=== PATIENT | male | born 1990 | race Caucasian/White ===

== ENCOUNTER 2018-03-27 11:17 | Emergency (ER) | payer SELFPAY ==
[2018-03-27 11:25] VITALS: BP 139/93
--- NOTE | 2018-03-27 11:51 | ER Document Report ---
ED Medical Screen (RME) - General Chief Complaint: Alcohol Withdrawl Stated Complaint: POSSIBLE ETOH Time Seen by Provider: 03/27/18 11:45 Notes: 28-year-old male patient comes emergency room for abscess on his left proximal forearm. Is been going on for about a week. There appear to be some satellite lesions. He states he has had these before, but they always cleared with antibiotics and did not require incision and drainage. He also states that he has not done IV drugs in a long time. He states he drinks a case of beer a day, last alcohol was 11:00 PM last night and he states he is in alcohol withdrawal. He also states he wants to stop drinking. I have greeted and performed a rapid initial assessment of this patient. A comprehensive ED assessment and evaluation of the patient, analysis of test results and completion of the medical decision making process will be conducted by additional ED providers. TRAVEL OUTSIDE OF THE [place] IN LAST 30 DAYS: No - Related Data Allergies/Adverse Reactions: No Known Allergies Allergy (Verified 03/27/18 11:20) Physical Exam - Vital signs Vitals: Temp Pulse Resp BP Pulse Ox 97.4 F 101 H 20 139/93 H 100 03/27/18 11:23 03/27/18 11:23 03/27/18 11:23 03/27/18 11:23 03/27/18 11:23 Course - Vital Signs Vital signs: Temp Pulse Resp BP Pulse Ox 97.4 F 101 H 20 139/93 H 100 03/27/18 11:23 03/27/18 11:23 03/27/18 11:23 03/27/18 11:23 03/27/18 11:23
[2018-03-27 12:28] LABS: ABSOLUTE BASOPHILS # (AUTO) 0.1 10^3/uL (0.0-0.2); ABSOLUTE EOSINOPHILS # (AUTO) 0.5 10^3/uL (0.0-0.6); ABSOLUTE LYMPHOCYTES (AUTO) 2.1 10^3/uL (0.5-4.7); ABSOLUTE MONOCYTES (AUTO) 1.1 10^3/uL (0.1-1.4); ABSOLUTE NEUT (AUTO) 11.4 10^3/uL (1.7-8.2); BASOPHILS % (AUTO) 0.7 % (0-2); EOSINOPHILS % (AUTO) 3.2 % (0-6); HEMATOCRIT 45.7 % (37.9-51.0); HEMOGLOBIN 15.7 g/dL (13.5-17.0); LYMPHOCYTES % (AUTO) 14.1 % (13-45); MEAN CORPUSCULAR HEMOGLOBIN 30.5 pg (27.0-33.4); MEAN CORPUSCULAR HGB CONC 34.3 g/dL (32.0-36.0); MEAN CORPUSCULAR VOLUME 89 fl (80-97); MONOCYTES % (AUTO) 7.4 % (3-13); PLATELET COUNT 267 10^3/uL (150-450); RED BLOOD COUNT 5.14 10^6/uL (4.35-5.55); RED CELL DISTRIBUTION WIDTH 13.5 % (11.5-14.0); SEGMENTED NEUTROPHILS % (AUTO) 74.6 % (42-78); TOTAL CELLS COUNTED % (AUTO) 100 %; WHITE BLOOD COUNT 15.2 10^3/uL (4.0-10.5)
[2018-03-27 12:45] LABS: ALANINE AMINOTRANSFERASE 53 U/L (21-72); ALBUMIN 4.8 g/dL (3.5-5.0); ALKALINE PHOSPHATASE 81 U/L (38-126); BLOOD UREA NITROGEN 11 mg/dL (7-20); CARBON DIOXIDE 27 mmol/L (22-30); GLUCOSE 92 mg/dL (75-110)
[2018-03-27 12:47] LABS: ANION GAP 10 (5-19); ASPARTATE AMINO TRANSFERASE 31 U/L (17-59); CALCIUM 9.5 mg/dL (8.4-10.2); CHLORIDE 102 mmol/L (98-107); SODIUM 139.2 mmol/L (137-145)
[2018-03-27 12:49] LABS: BILIRUBIN,TOTAL 0.3 mg/dL (0.2-1.3)
[2018-03-27 13:05] LABS: ALCOHOL < 10 mg/dL (NONE DETECTED)
[2018-03-27 13:06] LABS: BILIRUBIN,DIRECT 0.3 mg/dL (0.0-0.4)
[2018-03-27] MEDS ORDERED: LIDOCAINE 1%/EPINEPHRINE INJ 20 ML VIAL INJ ONE (13:36)
[2018-03-27] MEDS ORDERED: SULFAMETHOXAZOLE/TRIMETHOPRIM 800-160 MG TABLET PO ONE (13:37)
--- NOTE | 2018-03-27 14:04 | ER Document Report ---
ED General - General Chief Complaint: Alcohol Withdrawl Stated Complaint: POSSIBLE ETOH Time Seen by Provider: 03/27/18 11:45 TRAVEL OUTSIDE OF THE [place] IN LAST 30 DAYS: No - HPI Patient complains to provider of: Alcohol withdrawals abscess left arm Notes: Patient coming in for evaluation of the above state complaints. Patient was seen in triage notes provided below 28-year-old male patient comes emergency room for abscess on his left proximal forearm. Is been going on for about a week. There appear to be some satellite lesions. He states he has had these before, but they always cleared with antibiotics and did not require incision and drainage. He also states that he has not done IV drugs in a long time. He states he drinks a case of beer a day, last alcohol was 11:00 PM last night and he states he is in alcohol withdrawal. He also states he wants to stop drinking. Upon my evaluation patient is resting comfortably in the stretcher. Patient is requesting something for his alcohol withdrawals patient looks to be in no obvious distress asked the patient if he would like to go through detox and stop drinking patient states no. Explained to the patient that we will move on to further evaluate his abscess patient has an abscess lateral portion adjacent to the antecubital region on the left arm. Patient's arms heavily tattooed this is at the point of the tattoo patient denies any IV drug use denies fevers chills nausea vomiting diarrhea recent antibiotics. - Related Data Allergies/Adverse Reactions: No Known Allergies Allergy (Verified 03/27/18 11:20) Past Medical History - Social History Smoking Status: Current Every Day Smoker Chew tobacco use (# tins/day): No Frequency of alcohol use: Heavy Drug Abuse: Other Family History: Reviewed & Not Pertinent Patient has suicidal ideation: No Patient has homicidal ideation: No Renal/ Medical History: Denies: Hx Peritoneal Dialysis Review of Systems - Review of Systems Constitutional: No symptoms reported EENT: No symptoms reported Cardiovascular: No symptoms reported Respiratory: No symptoms reported Gastrointestinal: No symptoms reported Genitourinary: No symptoms reported Male Genitourinary: No symptoms reported Musculoskeletal: Other - Abscess Skin: No symptoms reported Hematologic/Lymphatic: No symptoms reported Neurological/Psychological: No symptoms reported -: Yes All other systems reviewed and negative Physical Exam - Vital signs Vitals: Temp Pulse Resp BP Pulse Ox 97.4 F 101 H 20 139/93 H 100 03/27/18 11:23 03/27/18 11:23 03/27/18 11:23 03/27/18 11:23 03/27/18 11:23 Interpretation: Normal - General General appearance: Appears well, Alert - HEENT Head: Normocephalic, Atraumatic Eyes: Normal Pupils: PERRL - Respiratory Respiratory status: No respiratory distress Chest status: Nontender Breath sounds: Normal Chest palpation: Normal - Cardiovascular Rhythm: Regular Heart sounds: Normal auscultation Murmur: No - Abdominal Inspection: Normal Distension: No distension Bowel sounds: Normal Tenderness: Nontender Organomegaly: No organomegaly - Back Back: Normal, Nontender - Extremities General upper extremity: Nontender, Normal color, Normal ROM, Normal temperature. No: Normal inspection - Heavily tattooed gentleman with an abscess approximately 3 cm x 3 cm lecture once left arm and antecubital region lateral side patient also has small areas of erythema to the forearm with no signs of abscess there is no streaking no cellulitic component General lower extremity: Normal inspection, Nontender, Normal color, Normal ROM, Normal temperature, Normal weight bearing. No: Sea's sign - Neurological Neuro grossly intact: Yes Cognition: Normal Orientation: AAOx4 Pavithra Coma Scale Eye Opening: Spontaneous [place] Coma Scale Verbal: Oriented Pavithra Coma Scale Motor: Obeys Commands [place] Coma Scale Total: 15 Speech: Normal Motor strength normal: LUE, RUE, LLE, RLE Sensory: Normal - Psychological Associated symptoms: Normal affect, Normal mood - Skin Skin Temperature: Warm Skin Moisture: Dry Skin Color: Normal Course - Re-evaluation Re-evalutation: 03/27/18 15:46 Explained the patient has time he does not want to quit drinking he does not look to be in acute alcohol withdrawals that we would drain his abscess. Upon obtaining the ultrasound and the I&D kit upon entrance into the patient's room the patient had eloped. - Vital Signs Vital signs: Temp Pulse Resp BP Pulse Ox 97.4 F 101 H 16 139/93 H 100 03/27/18 11:23 03/27/18 11:23 03/27/18 11:41 03/27/18 11:23 03/27/18 11:23 - Laboratory Result Diagrams: 03/27/18 12:16 03/27/18 12:16 Laboratory results interpreted by me: 03/27/18 12:16 WBC 15.2 H Absolute Neutrophils 11.4 H Discharge - Discharge Clinical Impression: Abscess of left arm, Alcohol use Condition: Good Disposition: HOME, SELF-CARE Instructions: Abscess ([facility]), Trimethoprim-Sulfa ([facility]) Additional Instructions: Please take your antibiotics as prescribed return to the ER symptoms worsen continue to drink alcohol. If you decide to undergo detox you may return to the ER or follow-up with the resources provided Prescriptions: Sulfamethoxazole/Trimethoprim [Bactrim Ds Tablet] 1 each PO BID #20 tablet
== END 2018-03-27 13:35 | disposition home or self-care (01) ==
LOC: ER 11:17
DX: L02.414 Cutaneous abscess of left upper limb (principal); Z72.89 Other problems related to lifestyle; F17.200 Nicotine dependence, unspecified, uncomplicated; F19.10 Other psychoactive substance abuse, uncomplicated; Z53.20 Procedure and treatment not carried out because of patient's decision for unspecified reasons
CPT/HCPCS: 36415; 80053; 80307; 83735; 85025; 99281; J3490